=== PATIENT | male | born 2000 | race American Indian/Alaskan Native ===

== ENCOUNTER 2022-02-07 05:39 | Emergency (ER) | payer OTHER, MEDICAID ==
[2022-02-07 08:20] VITALS: BP 130/80
[2022-02-07] MEDS ORDERED: KETOROLAC 10 MG TAB PO ONE (08:31)
[2022-02-07] MEDS ORDERED: CYCLOBENZAPRINE 10 MG TAB PO ONE (08:31)
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
== END 2022-02-07 09:46 | disposition home or self-care (01) ==
LOC: ED 05:39
DX: M25.561 Pain in right knee (principal); V89.2XXA Person injured in unspecified motor-vehicle accident, traffic, initial encounter; Y93.89 Activity, other specified; Y92.89 Other specified places as the place of occurrence of the external cause; Y99.8 Other external cause status
CPT/HCPCS: 99283